=== PATIENT | male | born 1970 | race Caucasian/White ===

== ENCOUNTER 2019-09-29 21:00 | Emergency (ER) | payer BC, OTHER ==
[2019-09-29] MEDS ORDERED: AUGMENTIN 875 MG TAB ONE (21:29)
[2019-09-29] MEDS ORDERED: AUGMENTIN 875 MG TAB As Ordered ONE (21:29)
[2019-09-29] MEDS ORDERED: LIDOCAINE 2% MDV 20ML VIAL ONE (21:29)
[2019-09-29] MEDS ORDERED: LIDOCAINE 2% MDV 20ML VIAL As Ordered ONE (21:30)
[2019-09-29] MEDS ORDERED: TETANUS/DIPHTHERIA TOX ADSORB ADULT 0.5ML SYR/VIAL (90714) ONE (21:32)
[2019-09-29] MEDS ORDERED: TETANUS/DIPHTHERIA TOX ADSORB ADULT 0.5ML SYR/VIAL (90714) As Ordered ONE (21:32)
[2019-09-29] MEDS ORDERED: BOOSTRIX/ADACEL VACCINE (DIPHTH/PERTUSS/ACELL/TETANUS) 0.5ML SYR As Ordered ONE (21:40)
[2019-09-29] MEDS ORDERED: BOOSTRIX/ADACEL VACCINE (DIPHTH/PERTUSS/ACELL/TETANUS) 0.5ML SYR ONE (21:40)
[2019-09-29] MEDS ORDERED: NORCO 5/325MG TABLET (BULK FOR ED) ONE (22:15)
[2019-09-29] MEDS ORDERED: NORCO 5/325MG TABLET (BULK FOR ED) As Ordered ONE (22:15)
== END 2019-09-29 22:25 | disposition home or self-care (01) ==
LOC: M ED 21:00
DX: S61.411A Laceration without foreign body of right hand, initial encounter (principal); W54.0XXA Bitten by dog, initial encounter; Y92.019 Unspecified place in single-family (private) house as the place of occurrence of the external cause; I10 Essential (primary) hypertension; Z23 Encounter for immunization